=== PATIENT | female | born 1980 | race Caucasian/White ===

== ENCOUNTER 2023-12-04 18:55 | Emergency (ER) | payer BC ==
[2023-12-04] MEDS: Sodium Chloride 0.9% 1,000 ML IV ONE (20:57)
[2023-12-04] MEDS: Ondansetron 4 MG/2 ML SDV IVPUSH ONE (20:57)
[2023-12-04] MEDS: Ketorolac 15 MG/ML SDV IVPUSH ONE (20:59)
[2023-12-04] MEDS: SUMAtriptan 6 MG/0.5 ML SDV SUBCUT ONE (21:00)
[2023-12-04 21:04] LABS: BASOPHILS ABSOLUTE AUTO 0.1 x10-3/uL (0.0-0.1); BASOPHILS PERCENT AUTO 0.8 % (0.2-1.5); EOSINOPHILS ABSOLUTE AUTO 0.1 x10-3/uL (0.0-0.8); EOSINOPHILS PERCENT AUTO 1.5 % (0.6-8.1); HEMATOCRIT 39.9 % (34.2-48.2); HEMOGLOBIN 13.7 g/dL (11.4-15.5); LYMPHOCYTES ABSOLUTE AUTO 3.8 x10-3/uL (1.0-4.4); LYMPHOCYTES PERCENT AUTO 43.9 % (18.4-52.1); MEAN CORPUSCULAR HEMOGLOBIN 32.4 pg (23.9-33.9); MEAN CORPUSCULAR HGB CONC 34.4 g/dL (31.9-34.8); MEAN CORPUSCULAR VOLUME 94.4 fL (76.7-100.5); MEAN PLATELET VOLUME 6.6 fL (7.1-12.4); MONOCYTES ABSOLUTE AUTO 0.5 x10-3/uL (0.3-1.0); NEUTROPHILS ABSOLUTE AUTO 4.1 x10-3/uL (1.5-6.3); NEUTROPHILS PERCENT AUTO 47.8 % (30.8-76.2); PLATELET COUNT,PLT 277 x10(3)uL (151-488); RED BLOOD CELL COUNT 4.23 x10(6)uL (3.60-5.20); WHITE BLOOD CELL COUNT,WBC 8.7 x10-3/uL (3.0-10.3)
[2023-12-04 21:07] LABS: BLOOD UREA NITROGEN,BUN 8 mg/dL (7-18); BUN/CREATININE RATIO 8.9 (9-20); CALCIUM 8.8 mg/dL (8.6-10.2); CARBON DIOXIDE,CO2 26 mmol/L (21-32); CHLORIDE,CL 105 mmol/L (100-110); CREATININE 0.9 mg/dL (0.55-1.02); EST CRCL DRUG DOSING (CG) 88.06 mL/min; ESTIMATED GFR 82 mL/min (>60); GLUCOSE RANDOM 89 mg/dL (80-116); POTASSIUM,K 3.6 mmol/L (3.5-5.3); SODIUM,NA 141 mmol/L (135-145)
[2023-12-04 21:13] LABS: A/G RATIO 1.1; ALANINE AMINOTRANSFERASE,ALT 23 U/L (12-36); ALBUMIN 3.8 g/dL (3.5-5.2); ALKALINE PHOSPHATASE 59 IU/L (56-112); ASPARTATE AMNIOTRANSFERASE,AST 16 IU/L (5-25); BILIRUBIN TOTAL 0.4 mg/dL (0.1-1.3); PROTEIN TOTAL,TP 7.4 g/dL (6.0-8.0)
[2023-12-04] MEDS: Ketorolac 30 MG/ML SDV ONE (22:02)
[2023-12-04] MEDS ORDERED: hydrOXYzine HCl 25 MG Tab PO ONE (22:05)
== END 2023-12-04 22:22 | disposition home or self-care (01) ==
LOC: FB.ED 18:55
DX: G43.909 Migraine, unspecified, not intractable, without status migrainosus (principal); F17.210 Nicotine dependence, cigarettes, uncomplicated; Z91.048 Other nonmedicinal substance allergy status; Z88.5 Allergy status to narcotic agent
CPT/HCPCS: 36415; 80053; 85025; 96361; 96372; 96374; 96375; 99284; A9270; J1885; J2405; J3030; J7030